=== PATIENT | female | born 1950 | race Asian ===

== ENCOUNTER → 2023-05-03 | Day surgery (SDC) | payer MEDICAID, OTHER ==
[~2023-05-03] VITALS: Ht 160 cm; Wt 79.1 kg
[~2023-05-03] MED LIST: ACET325S20 PR; ATOR20TA PO; CETI-450 PO; DULO-114 PO; FLUT16SP NASAL; GABA-1216 PO; HYDR25TA2 PO; LIDO1ADH63 TP; LIDOCAINE/PF 2% 5 ML VIAL IM ONE; MELO-381 PO; NORT25 PO; OMEP20 PO; OXYGEN THERAPY IH SCH; PROPOFOL 1% 20 ML VIAL IVP ONE; SODIUM CHLORIDE 0.9% 1,000 ML IV ONE; SODIUM CHLORIDE 0.9% 1,000 ML ONE
== END | disposition still patient (30) ==
LOC: SURGERY 08:18
PROVIDERS: ATTEND Specialist
DX: Z12.11 Encounter for screening for malignant neoplasm of colon (principal); K63.5 Polyp of colon; M10.9 Gout, unspecified; M19.90 Unspecified osteoarthritis, unspecified site; E78.5 Hyperlipidemia, unspecified; Z90.710 Acquired absence of both cervix and uterus; Z80.3 Family history of malignant neoplasm of breast; Z98.890 Other specified postprocedural states; Z79.899 Other long term (current) drug therapy; Z87.01 Personal history of pneumonia (recurrent)
CPT/HCPCS: 45385; C1769; J2704; J3490; J7030